=== PATIENT | male | born 1980 | race African-American/Black ===

== ENCOUNTER 2016-12-10 23:55 | Emergency (ER) | payer SELFPAY ==
--- NOTE | ~2016-12-10 | EKG ---
PATIENT: ALEX JACOBSEN UNIT #: [id number] Ventricular Rate: 75 BPM Atrial Rate: 75 BPM P-R Interval: 196 ms QRS Duration: 88 ms Q-T Interval: 384 ms QTC Calculation(Bezet): 428 ms P [place]: 32 degrees Calculated R [place]: 3 degrees Calculated T [place]: -127 degrees Diagnosis Line: Normal sinus rhythm Diagnosis Line: Anterior infarct , age undetermined T wave Diagnosis Line: abnormality, consider lateral ischemia Diagnosis Line: ST and T wave abnormality, consider inferolateral Diagnosis Line: ischemia Diagnosis Line: Abnormal ECG Diagnosis Line: No previous ECGs available Diagnosis Line: Confirmed by LILLIAN SHEPHERD MD ([id number]) on 12/21/2016 Diagnosis Line: 11:48:51 AM INTERPRETING MD: JOAO CRANE
[~2016-12-10 23:55] MED LIST: ALBUTEROL17 GM INH; ALOCRIL OP; CIPRO PO; FLONASE16 GM; VICODIN 5/1 TAB 5/50 PO; ZESTORETIC 20/21 TAB; ZESTORETIC 20/21 TAB PO; ZYRTEC PO
[2016-12-11] MEDS ORDERED: METFORMIN (00:04)
[2016-12-11] MEDS ORDERED: LISINOPRIL (00:04)
[2016-12-11 00:48] LABS: BASOPHIL% 0.6 % (0-2.5); DIFF IND NO; EOSINOPHIL# 0.3 X10e3 (0-0.7); EOSINOPHIL% 3.2 % (0.0-7.0); HEMATOCRIT 40.4 % (38.0-50.0); HEMOGLOBIN 13.8 gm/dL (13.0-16.0); LYMPHOCYTE# 3.1 X10e3 (1.0-3.5); LYMPHOCYTE% 38.9 % (17.0-45.0); MEAN CELL VOLUME 86.7 FL (83-96); MEAN CORPUSCULAR HEMOGLOBIN 29.6 PG (28-34); MEAN CORPUSCULAR HGB CONC 34.2 g/dL (30-36); MEAN PLATELET VOLUME 8.3 FL (6.5-11.5); MONOCYTE# 0.8 X10e3 (0-1.0); MONOCYTE% 9.5 % (3.0-12.0); NEUTROPHIL# 3.8 X10e3 (1.5-7.1); NEUTROPHIL% 47.8 % (40-75); PLATELET COUNT 345 X10e3 (140-420); RED BLOOD COUNT 4.66 X10e (3.90-5.60); RED CELL DISTRIBUTION WIDTH 12.9 % (11.0-15.5); WHITE BLOOD COUNT 7.9 X10e3 (4.0-10.5)
[2016-12-11 01:07] LABS: BUN/CREATININE RATIO 13.33; CALCIUM SERUM 9.1 mg/dL (8.4-10.2); CREATININE SERUM 0.9 mg/dL (0.6-1.4)
== END 2016-12-11 01:50 | disposition home or self-care (01) ==
LOC: SED 23:55
PROVIDERS: Nurse Practitioner Family
DX: J30.9 Allergic rhinitis, unspecified (principal); H10.10 Acute atopic conjunctivitis, unspecified eye; I10 Essential (primary) hypertension; E11.9 Type 2 diabetes mellitus without complications; F17.200 Nicotine dependence, unspecified, uncomplicated; Z88.8 Allergy status to other drugs, medicaments and biological substances
CPT/HCPCS: 80048; 82947; 85025; 93005; 99283